=== PATIENT | female | born 1940 | race Caucasian/White ===

== ENCOUNTER 2023-09-24 14:17 | Observation (INO) | payer MEDICARE, SELFPAY ==
[2023-09-24] VITALS (8 sets, daily range): BP systolic 112–187; BP diastolic 63–97; BMI 25.5
--- NOTE | 2023-09-24 11:26 | ED.GENMED ---
History of Present Illness
General
Chief Complaint: Change in Mental Status
Source: patient
Exam Limitations: none
Time Seen by Provider: 09/24/23 11:04
Nursing documentation reviewed up to this point in time: agreed with
History of Present Illness
History of Present Illness:
Patient is an 83-year-old female with a history of A-fib hypertension hyperlipidemia brought to the ER by daughter for evaluation. Daughter reports for the past 1 month patient has been confused then not acting her normal self. This has been
getting progressively worse. She was diagnosed with UTI last week and on amoxicillin for 4 days but not improving. Yesterday daughter took a new urine specimen to primary care office and they did switch her antibiotics to cefuroxime. She had 1
dose yesterday and 1 dose today. Daughter reports patient lives by herself. She is unaware of any recent fall.
Patient is aware that she is here because daughter is concerned that she i still confused. She reports she does have a history of mild dementia.s
She does have a history of renal disease and is followed by Dr. Jiménez.
Past History
Past History
ED Past Medical History: Arrthythmia, CAD, HTN, Hypercholesterolemia, Psychiatric (Generalized anxiety disorder) and Other (Renal calculi, arthritis, osteoporosis)
ED Past Surgical History: Gynecological (Hysterectomy) and Other (Parathyroidectomy, Tubal ligation)
Social History
Tobacco: Non-smoker
Alcohol: None
Personal: Single
Living: with family
Review of Systems
Review of Systems
Allergies reviewed?: Yes
Other source history: family
All Other Systems: ROS reviewed and negative except as documented in HPI and ROS
Constitutional: Reports no symptoms; Denies fever, fatigue or chills
Respiratory: Reports no symptoms
Cardiac: Reports no symptoms
ABD/GI: Reports no symptoms
: Reports no symptoms
Musculoskeletal: Reports no symptoms
Skin: Reports no symptoms
Neurological: Reports other (Change in mental status increased confusion for the past 1 month as per daughter.)
Hematologic/Lymphatic: Reports no symptoms
Psychiatric: Reports no symptoms
Phy Exam
General Physical Exam
General Presentation: no apparent distress
General age: appears stated age
General Skin: warm and dry
General Habitus: normal
General Mental: alert
General Hydration: dry mucous membranes
Cardiovascular Exam
Cardiovascular Exam: regular rate/rhythm, no murmur and normal peripheral pulses
Pulmonary Exam
Pulmonary Exam: lungs clear and no respiratory distress
Neurological Exam
Neurological Exam: alert and other (Awake alert able to follow commands oriented to person place confused to year or month)
Musculoskeletal Exam
Musculoskeletal Exam: full ROM
Skin Exam
Skin Exam: normal color and warm/dry
Psychiatric Exam
Psychiatric Exam: normal mood/affect
Course
Orders/Labs/Results
Orders:
Orders
09/24/23 11:15
Electrocardiogram (*1) Urgent
Reason for Study: Other
Other Reason for Exam: sepsis
EKG- Treatment ONCE
CR Chest - 2 Views Urgent
Comment:
Reason For Exam: change in MS
09/24/23 11:30
CT Head W/o Iv Contrast Urgent
Comment:
Reason For Exam: change in ms
09/24/23 11:42
Complete Blood Count/With Diff Urgent
Comprehensive Metabolic Panel Urgent
Lactic Acid Q4H
Comment: CANCEL 2nd LACTIC ACID IF 1st LACTIC ACID IS LESS THAN 2
Urinalysis Reflex To Culture Urgent
Date Specimen was Collected: 09/24/23
Time Specimen was Collected: 11:40
Blood Culture Q30M
CLAUDETTE Source: Blood/Venous
Specimen Description:
Blood Culture Q30M
CLAUDETTE Source: Blood/Venous
Specimen Description:
09/24/23 11:43
0.9% Sodium Chloride 1000 ml [Nss] 1,000 ml IV BOLUS
Abnormal Lab Results
09/24/23
11:42
Absolute Neuts (auto) 6.8 H 10^3/uL
(1.4-6.5)
Absolute Lymphs (auto) 1.1 L 10^3/uL
(1.2-3.4)
Absolute Monos (auto) 0.7 H 10^3/uL
(0.1-0.6)
Neutrophils % 77.4 H %
(42.2-75.2)
Lymphocytes % 13.0 L %
(20.5-51.1)
BUN 55 H mg/dl
(7-17)
Creatinine 1.9 H mg/dL
(0.6-1.0)
09/24/23 11:42
09/24/23 11:42
Vital Signs
Initial and Last Documented VS:
Initial Vital Signs
Temp Pulse Resp BP Pulse Ox
97.7 F 77 12 112/64 96
09/24/23 10:54 09/24/23 10:54 09/24/23 10:54 09/24/23 10:54 09/24/23 10:54
Last Documented Vital Signs
Temp Pulse Resp BP Pulse Ox
97.7 F 67 18 158/82 97
09/24/23 10:54 09/24/23 11:45 09/24/23 11:45 09/24/23 11:24 09/24/23 11:45
MDM/Problems Addressed
Differential Diagnosis Includes:
Not limited to dehydration renal failure urine infection anemia intracranial hemorrhage
MDM/Problems Addressed:
83 yr old female brought by daughter for worsening confusion x1 month. recent UTI antibx were completed. pt was started on Cefuroxime. yesterday. Pt arrives to the ED awake alert mildly confused. hx of renal disease followed by DR Jiménez as per
daughter.
Patient is afebrile here no acute distress mildly confused however daughter reports patient is very confused at home and not able to go home as she lives alone. This is not patient's norm. She has mild dementia as per daughter but nothing else.
She does take her medications but daughter has to call her and give her medicines. She presents awake alert no acute distress afebrile normal urine normal white count normal last elevated renal function but she does have renal disease and is
followed by nephrology here. Will require admission.
*Radiology
Radiology exam reviewed: radiology read reviewed
*Pulse Oximetry
Patient hypoxic: no
*EKG
Interpreted by ED Provider?: Yes
Heart Rate: 75
Rate: normal
Rhythm: sinus
Ischemia: no ischemia
*Critical Care Note
Total Time (30-74mins, 75-104mins- exclusive of procedures): Not Applicable
ED Attending Note
-
Portions of this chart may have been created with voice recognition software.� Occasional wrong word or��sound alike� substitutions may have occurred due to the inherent limitations of voice recognition software.
Discharge Plan
Departure
Patient Disposition: Admit
Date of Disposition: 09/24/23
Time of Disposition: 13:12
Admit to: Med/Surg
Admit to doctor: hospitalist
Presentation/result/management discussed w/ accepting MD/DO: Hospitalist
Patient with high blood pressure during this ER visit?: Yes
Condition: Fair
Covid-19: Not Applicable
Discharge Problem:
Altered mental status, Chronic renal insufficiency
Prescriptions:
No Action
Xarelto 15 MG tablet
15 mg PO DAILY
buspirone 10 MG tablet
10 mg PO TID
pantoprazole [Protonix] 40 mg Tablet,Delayed Release (Dr/Ec)
40 mg PO BID
docusate sodium [Colace] 100 mg Capsule
100 mg PO DAILY@1500
clonazepam 0.5 mg tablet
0.5 mg PO TID
cefuroxime axetil 250 mg tablet
250 mg PO BID
Patient Comments:
09/24/2023, filled on 09/23/2023 and instructed to take 1 tab BID for 7 days.
famotidine 40 mg Tablet
40 mg PO QPM
gabapentin 300 mg Capsule
300 mg PO HS
Visbiome 112.5 billion cell Capsule
1 cap PO DAILY@1500
cholecalciferol (vitamin D3) 50 mcg (2,000 unit) Tablet
50 mcg PO DAILY@1500
Referrals:
Nelsy Gates DO [Family Provider] -
Interventions
Interventions:
*Risk Screen - Suicide Last Done: 09/24/23 10:54
*General Assessment Last Done: 09/24/23 10:54
*Neglect/Abuse Screening Last Done: 09/24/23 11:38
*ED COVID-19 Vaccine History Last Done: 09/24/23 11:38
ED- Neurological Assessment Last Done: 09/24/23 11:38
Discharge Date and Time
Print Language: GUYANESE
[2023-09-24] MEDS: NSS 1000 IV (11:43)
[2023-09-24 11:54] LABS: % Basophils 0.2 % (0-2); % Eosinophils 1.1 % (0-6); % Immature Granulocytes 0.2 % (0-0.5); % Monocytes 8.1 % (1.7-9.3); % Neutrophils 77.4 % (42.2-75.2); Absolute Eosinophils 0.1 10^3/uL (0-0.7); Absolute Lymphocytes 1.1 10^3/uL (1.2-3.4); Absolute Monocytes 0.7 10^3/uL (0.1-0.6); Absolute Neutrophils 6.8 10^3/uL (1.4-6.5); Hemoglobin 12.6 g/dL (12.0-16.0); Mean Corp Hgb Conc. 33.2 g/dL (33.0-37.0); Mean Corpuscular Hgb 29.1 pg (27.0-31.0); Mean Corpuscular Volume 87.8 fL (81.0-99.0); Mean Platelet Volume 9.8 fL (7.4-10.4); Nucleated Red Blood Cells % 0 %; Platelet Count 196 10^3/uL (130-400); Red Blood Cell Count 4.33 10^6/uL (4.20-5.40); White Blood Cell Count 8.8 10^3/uL (4.8-10.8)
[2023-09-24 11:57] LABS: Urine Albumin Negative (Neg - Trace); Urine Bilirubin Negative (Negative); Urine Character Clear (Clear); Urine Color Yellow; Urine Glucose Negative (Negative); Urine Ketone Negative (Negative); Urine Leukocyte Negative (Negative); Urine Nitrite Negative (Negative); Urine Occult Blood Negative (Negative); Urine Specific Gravity 1.015 (<1.030); Urine Urobilinogen Negative (Neg - 1+)
[2023-09-24 12:12] LABS: ALT (SGPT) 20 U/L (0-35); AST (SGOT) 32 U/L (14-36); Albumin 4.4 g/dl (3.5-5.0); Alkaline Phosphatase 69 U/L (38-126); Blood Urea Nitrogen 55 mg/dl (7-17); Calcium 9.4 mg/dl (8.4-10.2); Carbon Dioxide 26 mmol/L (22-30); Chloride 104 mmol/L (98-107); Estimated Creatinine Clearance 17 ml/min; Glucose 94 mg/dl (70-99); Potassium 4.8 mmol/L (3.5-5.1); Sodium 139 mmol/L (135-145); Total Bilirubin 0.6 mg/dl (0.2-1.3); Total Protein 7.5 g/dl (6.3-8.2); eGFR 25.56
--- NOTE | 2023-09-24 13:24 | HPS.HSE ---
Addendum entered and electronically signed by Wilton Hernandez MD 09/24/23 14:43:
83 female history of atrial fibrillation hypertension hyperlipidemia presents to the ER by daughter for confusion evaluation.
Per documentation over the last 1 month has been more progressively confused calling daughter more frequently weak and off balance. Recently diagnosed with a UTI on amoxicillin for the past 4 days but not improving.
On my examination I was currently not concerned for altered mentation. She was able to tell me where she was month year. She was a child and was going on the news who the current president is and about the presidential race.
Review of laboratory testing demonstrates creatinine of 1.9 previous 1.4. Urine analysis clean. CBC unremarkable. Head CT no acute intracranial abnormality.
JEANE versus progressive CKD. Will check urine studies CK bladder scan. If not improving check RBUS. Encourage p.o. intake. May consider nephrology consult if not improving.
Dementia, no mild could be progressively worsening however on my examination she was coherent and competent and was able to verbalize understanding about living on her own. She tells me that she does everything for herself and lives in a trailer
which she keeps very nicely.
-She reported that her daughter gets frustrated with her and that is why she brought her to the hospital because she has been working a lot as a dry cleaner helper and it is a lot of hard for her because she is very tired.
-Therefore to reassess capacity will have like psychiatry to evaluate her. Would hold any sedating agents. She is on gabapentin clonazepam buspirone. Appreciate psychiatry's input on this.
-Would like psychiatry's input on capacity to refuse facility if needed on discharge
Will have PT/OT evaluate.
Original Note:
Family Physician
-
Family Physician: Nelsy Gates
Chief Complaint
-
weakness
History of Present Illness
83-year-old female with a history of A-fib hypertension hyperlipidemia brought to the ER by daughter for evaluation. Daughter reports for the past 1 month patient has been confused then not acting her normal self. patient will call her all light
saying that her phone is not working. she was up all last night. patient complained to his daughter that she is very weak and off balance. This has been getting progressively worse. She was diagnosed with UTI last week and on amoxicillin for 4
days but not improving. Yesterday daughter took a new urine specimen to primary care office and they did switch her antibiotics to cefuroxime. She had 1 dose yesterday and 1 dose today. at present patient is oriented. she is able to answer
questions appropriately. Daughter reports patient lives by herself. patient denied any BARRETT, dizzy or syncopal episode. denied fever, chills, chest pain, sob.denied abdominal pain, n,v,d. denied dysuria or hematuria. at present patient lives alone,
do everything for herself.
she is worried about her daughter as she is stressed out and overworked and takes it on her
admitting for further management.
Medical History
Past Medical History
Past Medical History: Reports Other
Additional Past Medical History:
Hypertension
Paroxysmal A-fib
Kidney stones
Chronic kidney disease stage III
Hyperlipidemia
Anxiety
Hyponatremia
Right renal atrophy
Depression
Bronchitis
Past Surgical History: Reports Other
Additional Past Surgical History:
Appendectomy
Tubal ligation
Polypectomy
Hysterectomy
Social History
Tobacco: Non-smoker
Alcohol: None
Drug: None
Personal: Single
Living: Alone
Family History
Family History: Not pertinent
Allergies / Home Medications
Allergies reflects when Allergies were last updated in [employer].
Home Medications with original date entered in [employer]
Allergy/Medication List:
Allergies
Allergy/AdvReac Type Severity Reaction Status Date / Time
No Known Allergies Allergy Verified 08/29/22 07:18
Home Medications
rivaroxaban 15 mg tablet (Xarelto) 15 mg PO DAILY Blood clot prevention/tx 09/11/19
buspirone 10 mg tablet 10 mg PO TID Mental Health/Anxiety 07/24/21
clonazepam 0.5 mg tablet 0.5 mg PO TID 08/29/22
docusate sodium 100 mg capsule (Colace) 100 mg PO DAILY@1500 08/29/22
pantoprazole 40 mg tablet,delayed release (Protonix) 40 mg PO BID 08/29/22
Lactobac no.2-Bifidobac no.1-S. thermo 112.5 billion cell capsule (Visbiome) 1 cap PO DAILY@1500 09/24/23
cefuroxime axetil 250 mg tablet 250 mg PO BID 09/24/23
cholecalciferol (vitamin D3) 50 mcg (2,000 unit) tablet 50 mcg PO DAILY@1500 09/24/23
famotidine 40 mg tablet 40 mg PO QPM 09/24/23
gabapentin 300 mg capsule 300 mg PO HS 09/24/23
Review of Systems
-
Constitutional: Reports No Symptoms
EENT: Reports No Symptoms
Respiratory: Reports No Symptoms
Cardiac: Reports No Symptoms
Abdomen/GI: Reports No Symptoms
: Reports No Symptoms
Musculoskeletal: Reports No Symptoms
Skin: Reports No Symptoms
Neurological: Reports No Symptoms
Endocrine: Reports No Symptoms
Hematologic/Lymphatic: Reports No Symptoms
Psych: Reports No Symptoms
Physical Exam
Vital Signs
Vital Signs
Temp Pulse Resp BP Pulse Ox
97.7 F 67 18 158/82 97
09/24/23 10:54 09/24/23 11:45 09/24/23 11:45 09/24/23 11:24 09/24/23 11:45
Physical Exam
General: Well Developed, Well Nourished and No Apparent Distress
HEENT: NormoCephalic, Moist mucous membranes and Atraumatic
Respiratory: Clear
Cardiac: S1/S2 and Regular Rhythm; No Murmur or Rub
GI: Soft, Non Tender, Non Distended and Normal Bowel Sounds; No Organomegaly
Rectal: Deferred by Provider
Musculoskeletal: No Clubbing, No Cyanosis and No Edema
Skin: No Rash
Neuro: AO x 3 and Nonfocal/grossly intact
Psych: Calm
Laboratory Results
-
09/24/23 11:42
09/24/23 11:42
Laboratory Results
Lactic Acid Cancelled 09/24/23 15:15
Total Bilirubin 0.6 mg/dl (0.2-1.3) 09/24/23 11:42
AST 32 U/L (14-36) 09/24/23 11:42
ALT 20 U/L (0-35) 09/24/23 11:42
Alkaline Phosphatase 69 U/L (38-126) 09/24/23 11:42
Data Reviewed
-
Lab Data: Labs Reviewed by me
Impression/Plan
-
# Metabolic encephalopathy/hxt of Mild dementia likely progressively worsening dementia
-at present patient is oriented x3
-CT head with no acute intracranial abnormality
-chest x ray with Hypo aerated lungs without consolidation.
-psych consulted
# Urinary tract infection
-At present on cefuroxime
-UA negative as she is on abx
-blood culture sent from ER
-denied any urinary symptoms
#generalized weakness
-PT/OT consult
# Chronic kidney disease stage IIIb
- creatinine 1.9
-ctm
# Paroxysmal afib
-Xarelto continued
# b/l renal artery stenosis with bilateral stents
# CKD stage 3
# generalized anxiety disorder
-buspirone,clonazepam continued
#GERD
-famotidine,Protonix continued
#DVT prophylaxis
-Xarelto
#CODE status
-full code
--- NOTE | 2023-09-24 15:53 | CON.MD ---
Consultation - Medical
-
patient seen chart reviewed. spoke w ms carranza referring spot machine operator from er. patient brought to er by nish faustin 'confused' the patient was being rx for uti w amox for four days then antibiotic changed . workup was negative for infection and patient admitted
for 'observation'. patient lives by herself in a 'nice trailer'. she reports d takes her shopping. she no longer drives. she has hx anxiety. dr vivar's note from 2021 reviewed. at that time she was seen for anx and was taking ativan. he
suggested zoloft but it does not seem to have been continued. she is now taking clonazepam o.5 mg tid buspar ten mg tid and gabapentin 300 mg q hs. the patient offers no complaints today. she was irritated w her daughter for bringing her here and
wishes to return to her home but was quite pleasant. she denies depression. she acknowledges her memory may not be 100 per cent but was able to tell me why she is here and denies that she has any problems keeping her home herself and her home in
order. er staff told me d reports she calls her at home frequently. patient says d is tired from having to work and she thinks d may regard her as a bother. patient denies depression per se. appetite is okay. sleep is fair
past psych hx no hospitalizations. see above long hx anxiety. dr vivar had recommended psychotherapy but patient not interested
medical hx recent uti patient w ckd cr is 1.9 hx renal artery stenosis arrhythmia cad htn renal calculi osteoporosis arthritis hysterectomy parathryoidectomy qtc ix okay hld
fh non contributory
substance abuse denied
social twice div then h five kids who are local. 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 enjoys word searches.
mse alert ox3 'sleepy deena' is president she is voting for [employer]. pleasant and cooperative speech and thought process nl no psychosis mood is good did not appear anxious aver intelligence did not do formal testing for memory . it is likely there
are some cognitive issues but patient socially appropriate and could tell me why she is here etc. average intelligence insight judgment seem okay
dx unspecified anxiety
plan patient does seem to me to be competent to make medical decisions on her own behalf. i don't see any need here for alternative psychiatric medications. that said if family is concerned about her ability to live alone someone from area office on
again could be out to assess and make recommendations. it is possible that w current uti her cognition may be somewhat less sharp in recent days.l sometimes improvement in cognition lags behind the rx of the infection. that said klonopin o.5 mg tid
is not a recipe for optimum cognition in anyone especially the elderly. klonopin does place her at risk for falls and diminished cognition and ideally should be tapered and eventually dc'ed if possible. would give another thought to sertraline for
anxiety in the future. will check in w her in the am.
[2023-09-24 16:10] LABS: Total CK 23 U/L (30-135)
[2023-09-24] MEDS: KLONOPIN 0.5 MG PO ×2 (16:52→21:08)
[2023-09-24] MEDS: COLACE 100 MG PO (16:52)
[2023-09-24] MEDS: BUSPAR 10 MG PO ×2 (16:53→21:08)
[2023-09-24] MEDS: VITAMIN D3 (cholecalciferol) 50 MCG PO (16:53)
[2023-09-24] MEDS: VISBIOME 1 CAP PO (16:53)
[2023-09-24] MEDS: CEFTIN 250 MG PO (18:14)
[2023-09-24] MEDS: PROTONIX 40 MG PO (21:00)
[2023-09-24] MEDS: NEURONTIN 300 MG PO (21:08)
[2023-09-25 01:02] VITALS: BMI 25.5
[2023-09-25 05:07] LABS: Osmolality Urine 607 mOsm/kg (300-900)
[2023-09-25 05:19] LABS: Urine Potassium 43.9 mmol/L (30-90); Urine Protein 14 mg/dl (0-12); Urine Sodium 80 mmol/L (30-90)
[2023-09-25 07:35] VITALS: BP 163/83
[2023-09-25 07:43] LABS: Hematocrit 36.2 % (37.0-47.0); Hemoglobin 11.6 g/dL (12.0-16.0); Mean Corpuscular Hgb 28.8 pg (27.0-31.0); Mean Corpuscular Volume 89.8 fL (81.0-99.0); Mean Platelet Volume 9.6 fL (7.4-10.4); Platelet Count 168 10^3/uL (130-400); Red Blood Cell Count 4.03 10^6/uL (4.20-5.40); Red Cell Dist. Width 12.8 % (11.5-14.5); White Blood Cell Count 5.2 10^3/uL (4.8-10.8)
[2023-09-25] MEDS: PROTONIX 40 MG PO (07:52)
[2023-09-25] MEDS: BUSPAR 10 MG PO (07:52)
[2023-09-25] MEDS: KLONOPIN 0.5 MG PO (07:53)
[2023-09-25] MEDS: XARELTO 15 MG PO (07:53)
[2023-09-25 08:56] LABS: Blood Urea Nitrogen 50 mg/dl (7-17); Calcium 9.2 mg/dl (8.4-10.2); Carbon Dioxide 23 mmol/L (22-30); Chloride 108 mmol/L (98-107); Estimated Creatinine Clearance 21 ml/min; Glucose 88 mg/dl (70-99); Potassium 4.7 mmol/L (3.5-5.1); Sodium 139 mmol/L (135-145); eGFR 31.41
[2023-09-25] MEDS: CEFTIN 250 MG PO (08:58)
[2023-09-25 09:20] VITALS: BP 123/54; PULSE 75; O2SAT 95
[2023-09-25 09:47] VITALS: BP 123/54; PULSE 75; O2SAT 95
--- NOTE | 2023-09-25 11:51 | W.PN.UPDATE ---
Update Note
Progress Note Update
patient seen chart reviewed spoke with dion and renan. 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 the patient remains pleasant and wants to go home. cm informed me that PT thinks she needs 24 hour supervision in the home.
testing consistent with mild dementia which is likely but i would note that patient interacts with me and with nursing in a very socially appropriate manner at this point and it is not clear to me that 24 hour supervision would be required. i would
still recommend that klonopin be tapered as it may be contributing to the appearance of a dementia given that it impairs memory and also can inc risk for falls. she should be retested re mental status when it is tapered. i suspect she will improved.
she is here on observational status and i had been reluctant to cut back the klonopin which she has taken for some time. her pcp should be made aware of this and work with her and family to begin to taper the klonopin as an out pt and then to
consider whether an ssri could be helpful for anxiety. psych will sign off
--- NOTE | 2023-09-25 12:21 | W.DCSUMMARY ---
Discharge Summary
Discharge Data
Date of Admission: 09/24/23
Date of Discharge: 09/25/23
-
Pending Results: No
Hospital Course
Presented with concerns of toxic metabolic encephalopathy. Found to have JEANE with a creatinine of 1.9 improved to 1.6 after some gentle IV hydration. Was recently being treated for a UTI as well therefore antibiotics were continued.
Was evaluated by psychiatry as there was concern for capacity and dementia as she was living on her own. Psychiatry evaluated has capacity and is competent awake questionable mild dementia. She is on Klonopin which can affect memory and elderly as
well as increased fall risk. Recommended to taper off slowly consider starting sertraline. Recommended to daughter outpatient follow-up with PCP and psychiatry for this.
Was seen by physical therapy recommended home with 24-hour care.
Visiting nurse was set up by case management3
CT Brain:
IMPRESSION: No acute intracranial abnormality.
Discharge Plan
-
Patient Disposition: Home with Home Care
Discharge Diagnosis/Procedures: UTI, JEANE, atrial fibrillation hypertension hyperlipidemia
Condition: Fair
Diet: No restrictions
Activity: No restrictions and With assistance
Driving Restrictions: No driving
Bathing Restrictions: None
Other Services: VN
Activity Restrictions/Additional Instructions:
Presented for confusion. Found to have EJANE and was being treated for UTI as an outpatient. Antibiotics were changed to cefuroxime for which will be continued for additional 2 more days to complete 3-day course. Kidney function improved from 1.9
to 1.6. Was seen by psychiatry and physical therapy. Recommendations for this is that she was competent to make her own medical decisions. Taper Klonopin off and to switch to a different anxiolytic for which her PCP/outpatient psychiatry should
complete. Physical therapy noted mild dementia per psych however per psychiatry Klonopin can cause memory defects therefore falsely affecting memory score. Additionally Klonopin has been associated with increased risk of falls in the elderly.
Physical therapy also did recommend 24-hour care.
Referrals:
Nelsy Gates DO [Family Provider] -
Prescriptions:
New
cefuroxime axetil 250 mg Tablet
250 mg PO BID@0900,1800 2 Days Qty: 4 0RF
Continued
Xarelto 15 MG tablet
15 mg PO DAILY
buspirone 10 MG tablet
10 mg PO TID
pantoprazole [Protonix] 40 mg Tablet,Delayed Release (Dr/Ec)
40 mg PO BID
docusate sodium [Colace] 100 mg Capsule
100 mg PO DAILY@1500
clonazepam 0.5 mg tablet
0.5 mg PO TID
famotidine 40 mg Tablet
40 mg PO QPM
gabapentin 300 mg Capsule
300 mg PO HS
Visbiome 112.5 billion cell Capsule
1 cap PO DAILY@1500
cholecalciferol (vitamin D3) 50 mcg (2,000 unit) Tablet
50 mcg PO DAILY@1500
Discontinued
cefuroxime axetil 250 mg tablet
250 mg PO BID
Patient Comments:
09/24/2023, filled on 09/23/2023 and instructed to take 1 tab BID for 7 days.
Discharge Orders:
Discharge Patient (As Directed); Ordered 09/25/23
Ordered By: Wilton Hernandez
Discharge Date and Time
Print Language: AZERI
--- NOTE | 2023-09-25 12:27 | CM ---
Patient seen bedside, initial assessment completed. Patient resides in a one story trailer, two/three steps to enter. Patient reports she has a cane and rolling walker at home, ambulates independently. Patient reports [facility] in past, agreeable to
referral. Denies SNF history. Patient confirms PCP Nelsy Gates, pharmacy [facility]. VERONICA reviewed, refused to sign, placed in chart. PT recommending HH and 24 supervision, CM spoke with Dr. Tran and Hospitalist regarding 24 care
recommendation. CM spoke with patients daughter, Marina, discussed patient is medically clear for discharge. CM discussed PT recommendation and referral made to [facility] with daughter. Daughter reports patient is more than capable of living
independently, Marina reports she has four other siblings who all check on patient regularly. Daughter reports either herself or her brother will be picking patient up to bring home. CM will continue to follow for all discharge planning needs.
Plan; home with [facility] pending acceptance.
--- NOTE | 2023-09-25 14:18 | VNURNOTE ---
Home Health Liaison met with patient at 1315 to discuss [facility] nurse/therapy, visits, schedule and homebound status. Patient is agreeable and understands that visits at home will be 2-3 x per week to assess and teach medical management.
Call to patient's daughter Marina to discuss above and answer questions.
[facility] brochure provided with contact information. Patient is aware that [facility] will contact her for start of care in 1-2 days after discharge from .
[facility] referral completed in [facility].
[2023-09-25 14:33] VITALS: BP 143/68
--- NOTE | 2023-09-25 15:21 | PTCARENOTE ---
pt down to SAMUEL cullen with CAROLIN Reilly.
--- NOTE | 2023-09-25 15:47 | PTCARENOTE ---
Addendum entered by Melba Horn RN 09/25/23 16:15:
Upon review with pharmacist, antibiotic was the same that patient was previously taking. Called and spoke with pharmacist who will call patients daughter to see if she has remaining pills from previous script.
Original Note:
Rn sales coordinator-Called and spoke with patients daughter Marina who states hat the pharmacy will not fill script. Called to [facility] pharmacy to clarify issue.
== END 2023-09-25 15:32 | disposition home health service (06) ==
LOC: 4 EAST ACU 14:17
PROVIDERS: Nurse Practitioner; Registered Nurse; ADMITTING PHYSICIAN Hospitalist; CONSULT PHYSICIAN Psychiatry & Neurology Psychiatry; EMERGENCY PHYSICIAN Emergency Medicine; FAMILY PHYSICIAN Family Medicine
DX: N39.0 Urinary tract infection, site not specified (principal); G93.41 Metabolic encephalopathy; N17.9 Acute kidney failure, unspecified; R53.1 Weakness; I48.0 Paroxysmal atrial fibrillation; E78.5 Hyperlipidemia, unspecified; E78.00 Pure hypercholesterolemia, unspecified; M81.0 Age-related osteoporosis without current pathological fracture; I25.10 Atherosclerotic heart disease of native coronary artery without angina pectoris; N18.32 Chronic kidney disease, stage 3b; M19.90 Unspecified osteoarthritis, unspecified site; E87.1 Hypo-osmolality and hyponatremia; I70.1 Atherosclerosis of renal artery; F41.1 Generalized anxiety disorder; K21.9 Gastro-esophageal reflux disease without esophagitis; F32.A Depression, unspecified; F03.A0 Unspecified dementia, mild, without behavioral disturbance, psychotic disturbance, mood disturbance, and anxiety; I12.9 Hypertensive chronic kidney disease with stage 1 through stage 4 chronic kidney disease, or unspecified chronic kidney disease; Z60.2 Problems related to living alone; Z87.440 Personal history of urinary (tract) infections; Z79.01 Long term (current) use of anticoagulants; Z87.442 Personal history of urinary calculi
CPT/HCPCS: 70450; 71046; 80048; 80053; 81003; 82550; 82570; 83605; 83935; 84133; 84156; 84300; 85025; 85027; 87040; 93005; 96360; 97129; 97162; 97166; 99285; G0378

== ENCOUNTER → 2023-11-18 18:30 | Outpatient (REF) | payer MEDICARE, SELFPAY ==
[2023-11-19 00:56] LABS: Urine Albumin Trace (Neg - Trace); Urine Bilirubin Negative (Negative); Urine Character Slightly Cloudy (Clear); Urine Color Yellow; Urine Glucose Negative (Negative); Urine Ketone Negative (Negative); Urine Leukocyte Trace (Negative); Urine Nitrite Negative (Negative); Urine Occult Blood Negative (Negative); Urine Specific Gravity 1.015 (<1.030); Urine Urobilinogen Negative (Neg - 1+)
[2023-11-19 01:18] LABS: Urine Amorphous Seen; Urine Bacteria Many (Negative); Urine Calcium Oxalate Crystals Seen; Urine Mucus Moderate; Urine Squamous Cell >30 /LPF (Few)
[2023-11-19 01:20] LABS: Urine Yeast Moderate (Negative)
== END ==
LOC: CLAB 18:30
PROVIDERS: ATTENDING PHYSICIAN Family Medicine
DX: N39.0 Urinary tract infection, site not specified (principal)
CPT/HCPCS: 81003; 81015; 87077; 87086